=== PATIENT | female | born 1950 ===

== ENCOUNTER 2020-02-09 16:20 | Outpatient (CLI) | payer MEDICARE | END 2020-02-09 16:21 | disposition short-term general hospital (02) | LOC: EMS 16:20 | PROVIDERS: ATTEND Surgery | DX: M25.551 Pain in right hip (principal); M25.552 Pain in left hip; R41.82 Altered mental status, unspecified; R32 Unspecified urinary incontinence; W19.XXXA Unspecified fall, initial encounter; Y92.008 Other place in unspecified non-institutional (private) residence as the place of occurrence of the external cause | CPT/HCPCS: A0425; A0429 ==